=== PATIENT | female | born 1970 | race Caucasian/White ===

== ENCOUNTER 2017-12-23 13:17 | Emergency (ER) | payer MEDICARE ==
[~2017-12-23] VITALS: Ht 165.1 cm; Wt 100.0 kg
[2017-12-23 13:34] VITALS: Ht 165.1 cm; Wt 100.0 kg
[2017-12-23] MEDS ORDERED: ZANTAC300 MG PO (13:37)
[2017-12-23] MEDS ORDERED: MOBIC7.5 MG PO (13:38)
[2017-12-23] MEDS ORDERED: VOLTAREN75 MG PO (14:40)
[2017-12-23] MEDS ORDERED: BACLOFEN20 M1 PO (14:40)
[2017-12-23 15:02] VITALS: BP 142/73
== END 2017-12-23 15:04 | disposition home or self-care (01) ==
LOC: D.ER 13:17
DX: S39.012A Strain of muscle, fascia and tendon of lower back, initial encounter (principal); X58.XXXA Exposure to other specified factors, initial encounter; Y93.89 Activity, other specified; Y92.019 Unspecified place in single-family (private) house as the place of occurrence of the external cause; K21.9 Gastro-esophageal reflux disease without esophagitis

== ENCOUNTER → 2018-03-28 19:16 | Outpatient (CLI) | payer MEDICARE ==
[2017-12-23 13:34] VITALS: BMI 36.6
[~2018-03-28 19:16] MED LIST: BACLOFEN20 M1 PO; MOBIC7.5 MG PO; VOLTAREN75 MG PO; ZANTAC300 MG PO
== END | disposition home or self-care (01) ==
LOC: D.MAMMO 16:15
DX: Z12.31 Encounter for screening mammogram for malignant neoplasm of breast (principal)